=== PATIENT | female | born 1965 | race Caucasian/White ===

== ENCOUNTER → 2017-11-17 14:56 | Outpatient (CLI) | payer OTHER, SELFPAY ==
--- NOTE | 2017-11-17 | DI.MRI.S_ITS ---
PROCEDURE: MR LUMBAR SPINE WO CON INDICATIONS: RIGHT LEG WEAKNESS, LOW BACK PAIN TECHNIQUE: Noncontrast sagittal T1 spin echo and T2 fast echo, sagittal STIR, axial T1 and T2 fast spin echo through the lumbar spine. In cases with scoliosis, additional coronal T2 fast spin echo may be performed. COMPARISON: [facility], CR, XR LUMBAR SPINE 2 OR 3 VIEWS, 10/25/2017, 9:21. FINDINGS: Image quality: Excellent. Alignment and Curvature: There is normal bony alignment. Bone Marrow: Marrow is of normal overall signal. No acute vertebral body compression fractures. Spinal Cord: Conus medullaris terminates at the L1-L2 level. Visualized cord demonstrates normal signal and size. Paraspinous Soft Tissues: No paravertebral masses. L1-L2: Normal appearance. L2-L3: Posterior annular fissure. Minimal broad-based posterior disc bulge bilateral facet disease. No high-grade canal stenosis. No foraminal narrowing. L3-L4: Minimal broad-based posterior disc bulge and bilateral facet disease. No central canal stenosis. Mild symmetric subarticular narrowing. No definite foraminal stenosis. L4-L5: Posterior annular fissure and broad-based posterior disc bulge with superimposed central disc protrusion. Bilateral facet arthropathy. Mild to moderate central canal narrowing. Symmetric bilateral subarticular narrowing is also present. Mild bilateral foraminal stenoses L5-S1: Posterior annular fissure. Broad-based posterior disc bulge bilateral facet arthropathy. Mild central canal narrowing. There is asymmetric subarticular narrowing, right greater than left. This may impinge the descending right S1 nerve root. Mild left foraminal stenosis. No definite right foraminal narrowing IMPRESSION: Asymmetric right-sided L5-S1 subarticular narrowing raising the possibility of impingement of the descending right S1 nerve root. Please correlate with exam findings. Elsewhere, mild-moderate L4-L5 central canal narrowing. Mild bilateral L4-L5 foraminal stenoses. Dictated by: Bernard Hawley M.D. on 11/17/2017 at 16:04 Approved by: Bernard Hawley M.D. on 11/17/2017 at 16:15
== END ==
PROVIDERS: Visit Provider Naturopath
DX: M54.5 Low back pain (principal); M62.81 Muscle weakness (generalized); M48.061 Spinal stenosis, lumbar region without neurogenic claudication
CPT/HCPCS: 72148

== ENCOUNTER 2018-04-10 12:27 | Outpatient (CLI) | payer OTHER, MEDICAID, SELFPAY ==
[2018-04-10] VITALS (8 sets, daily range): BP systolic 104–143; BP diastolic 19–82; PULSE 66–75; RESP 16–18; TEMP 36.6; O2SAT 95–100
--- NOTE | 2018-04-10 12:31 | DI.RAD.S_ITS ---
PROCEDURE: PAIN L/S TRANSFORAMINAL INJECT INDICATIONS: INTERVERTEBRAL DISC DISPLACEMENT FINDINGS: Fluoroscopic spot filming was performed to verify placement of spinal needles at the L4-L5 level(s), as labeled on the films. Appropriate location(s) of the needle tip(s) was confirmed by injection of iodinated contrast. IMPRESSION: Fluoroscopy for pain management. Dictated by: Kelli Morales M.D. on 04/11/2018 at 7:45 Approved by: Kelli Morales M.D. on 04/11/2018 at 7:45
[2018-04-10] MEDS: MIDAZOLAM 5 MG/5 ML VIAL IV (13:29)
[2018-04-10] MEDS: fentaNYL 100 MCG/2 ML INJ IV (13:35)
[2018-04-10] MEDS: BUPIVACAINE 0.25% (PF) VIAL 2 ML INJ (13:37)
[2018-04-10] MEDS: DEXAMETHASONE 10 MG/ML VIAL 20 MG INJ (13:37)
[2018-04-10] MEDS: IOPAMIDOL 15 ML VIAL 3 ML INJ (13:37)
--- NOTE | 2018-04-10 13:39 | PC.NURSE ---
ASSISTING PT OFF TABLE AND TRANSPORTING TO POST PROC AREA IN STABLE CONDITION
--- NOTE | 2018-04-10 13:42 | PM.PROC.1 ---
Procedures Date/Time Date of procedure: 04/10/18 Time of procedure: 13:42 General Procedure description: PREOP DIAGNOSIS 1. FORMAINAL STENOSIS WITH LE SYMPTOMS POST OP DIAGNOSIS 1. FORMAINAL STENOSIS WITH LE SYMPTOMS PROCEDURES 1. FLUOROSCOPICALLY GUIDED CONTRAST CONTROLLED TRANSFORAMINAL EPIDURAL STEROID INJECTION - RIGHT L4/5 TFESI PHYSICIAN: Bridger Garcai DO INDICATIONS: Curtis is referred by Dr. Elise for treatment of HNP with Right LE Symptoms FINDINGS Foraminal Nerve Root Compression secondary to disc disease and facet hypertrophy DESCRIPTION OF PROCEDURE: Following denial of allergy and review of potential side effects and complications, including, but not necessarily limited to, infection, allergic reaction, local tissue breakdown, stroke, temporary or permanent nerve injury, paralysis, and possible , the patient indicated that the patient understood and agreed to proceed. An informed consent document was signed by the patient, witnessed by a nurse, and placed in the patient's chart. Additionally, other treatment options including medications, modalities, and physical therapy were reviewed with the patient. After review of previous anaesthesic history and IV conscious sedation the patient was deemed safe to proceed with todays procedure with IV conscious sedation as ASA class II designation. Safety time-out was performed to confirm patient ID, procedure to be performed and site of procedure. IV sedation was accomplished with a combination of 3mg of Versed and 50mcg of Fentantyl was administered by the RN after DO order, titrated to patient comfort during the course of the procedure while the patient remained responsive to all verbal commands In the prone position following sterile prep and drape of the lumbar region, the Right L4/5 posterior neuroforamen was identified fluoroscopically. The skin was anesthetized via a 25-gauge 1.5-inch needle with 1% lidocaine solution. At this point, a 25-gauge 3.5-inch spinal needle was atraumatically introduced and advanced under fluoroscopic guidance through the posterior Right L4/5 neuroforamen to approximately the anterior aspect of the canal. Depth was confirmed on lateral view. Following negative aspiration, injection of approximately 1.5 cc of Isovue 200 under live fluoroscopy in the AP view confirmed excellent flow along the nerve root, into the epidural space without vascular or intrathecal uptake observed Radiological data, including multiple fluoroscopic views of the lumbosacral spine, reveal a spinal needle at the right L4/5 posterior neuroforamen. Subsequent views show flow of contrast material flowing superiorly and inferiorly along the nerve root confirming epidural flow. Subsequently, a test dose of 1.5 cc of 1% lidocaine solution was administered and patient was observed for two minutes for signs or symptoms of complications, including abdominal pain, shortness of breath, bilateral upper or lower extremity weakness, nausea and vomiting, prior to steroid injection. At this point, a total of 2cc or 20mg of dexamethasone was injected without incident. The procedure tolerated the procedure well without signs or symptoms of complications prior to transfer to the recovery area continued monitoring without incident.The patient was then transferred to the recovery area where they were observed for an appropriate time after the injection. The patient reported a VAS score of 7 prior to the procedure and a post-procedure VAS of 0. Total Fluoroscopy Time: 20.9 seconds Total Conscious Sedation Time: 24min POST OP INSTRUCTIONS The patient was provided a Pain Log to continue to record their response to the target-specific procedure prior to follow-up visit with their referring physician. Additionally, specific post-injection care instructions and a contact number to our office were provided if concerns arise regarding possible complications associated with the procedure are suspected. Bridger Garcia DO Complications: none
--- NOTE | 2018-04-10 13:54 | PC.NURSE ---
Pt returned from procedure via wheelchair awake and alert. Able to transfer self from w/c to chair with standby assist. Resumed monitoring from Sharon MCKEON.
--- NOTE | 2018-04-11 12:25 | PC.NURSE ---
FOLLOW UP CALL MADE, LEFT MSG WITH CLINIC NUMBER IN CASE OF QUESTIONS/CONCERNS.
== END 2018-04-10 14:25 ==
LOC: RAD 12:30
PROVIDERS: PCP Naturopath; Visit Provider Physical Medicine & Rehabilitation
DX: M48.061 Spinal stenosis, lumbar region without neurogenic claudication (principal); M51.16 Intervertebral disc disorders with radiculopathy, lumbar region
CPT/HCPCS: 64483; 99152; J1100; J2250; J3010

== ENCOUNTER → 2020-08-27 13:15 | Outpatient (CLI) | payer OTHER, MEDICAID, SELFPAY ==
[2020-08-27 14:41] LABS: COVID19 -Nasal RAPID Negative (Negative)
== END ==
PROVIDERS: PCP Naturopath; Visit Provider Specialist
DX: Z01.812 Encounter for preprocedural laboratory examination (principal); Z20.822 Contact with and (suspected) exposure to COVID-19
CPT/HCPCS: 87635

== ENCOUNTER 2020-08-28 06:21 | Day surgery (SDC) | payer OTHER, MEDICAID, SELFPAY ==
[2020-08-24 09:38] VITALS: BMI 22.6
[2020-08-28] VITALS (10 sets, daily range): BP systolic 94–130; BP diastolic 43–72; PULSE 52–69; RESP 13–18; TEMP 36.3–37.2; O2SAT 97–100; BMI 22.6
--- NOTE | 2020-08-28 | PATH_ITS ---
[facility] Accession Number: [id number] . 01 Material submitted: . endometrium - ENDOMETRIAL CURETTINGS . 01 Clinical history: . SDC . 02 Diagnosis: Endometrial Curettings: Disordered proliferative endometrium; negative for cytologic atypia or malignancy. Most endometrium is attached to portions of myometrium; negative for atypia or malignancy. Some tissue fragments demonstrate prominent vessels, suggestive of polyp, if clinical and imaging studies are concordant. MRV 09/02/2020 1041 Local . 02 Electronically signed: . Jessica Ribeiro MD, Pathologist NPI- [id number] . 01 Gross description: . ENDOMETRIAL CURETTINGS: Received in formalin are minute fragments of mucoid and hemorrhagic material measuring 2.2 x 2.0 x 0.4 cm in aggregate. Submitted in toto in 1 cassette. /DANIA 08/29/2020 0249 Local . 02 Pathologist provided ICD-10: N92.0 . 02 CPT . 231937 Performed at: 01 [facility] [address], [place], [place] [id number] MD Chicho Harper MD Phone: [phone] Performed at: 02 [facility] [address] [place], [place] [id number] MD Abby Jain MD Phone: [phone]
--- NOTE | 2020-08-28 07:28 | PM.PREOP ---
Pre-operative Note COVID-19 COVID-19 status: Negative Result date/Date tested (Pos, Neg/Pending): 08/27/20 Interval Note History & Physical reviewed/Exam performed by Physician: Yes Changes to H&P: No
[2020-08-28] MEDS: LACTATED RINGERS 1,000 ML 100 ML IV (07:29)
--- NOTE | 2020-08-28 08:02 | SUR.OPER ---
Lithotomy on padded OR bed, head on pillow, arms secured on padded arm boards at <90 degrees abduction. Legs secured in padded yellow fins stirrups.
--- NOTE | 2020-08-28 08:24 | PM.OP.1 ---
Operative Date/Time/Diagnoses Date of procedure: 08/28/20 Time of procedure: 08:24 Pre-op diagnosis: Postmenopausal bleeding Post-op diagnosis: same Procedure & Clinicians Procedure: Hysteroscopy with resection of polyp and D&C Same procedure as scheduled: Yes Indications: Postmenopausal bleeding Surgeon: Vanessa Juarez Click Yes if Unassisted: Yes Anesthesia Type: General Operative Notes Findings: Endometrial polyp with some areas of increased vascularity otherwise thin endometrium. The uterine cavity was somewhat distorted from her uterine fibroid. There did not appear to be any advantage to the resecting the fibroid. Closure Type: not applicable Specimen(s): other (Resected polyp with endometrial curettage ) Estimated Blood Loss (mL): 5 Procedure in detail: The patient was brought to the operating room where she underwent general anesthesia. She was placed in low stirrups She was prepped and draped in usual sterile fashion with pulsatile stockings in place and functional, warming in place. No antibiotics were in Her bladder was drained with in and out catheter. A single-tooth tenaculum was placed on the anterior lip of the cervix and the uterus dilated to #8 Hegar dilator. The hysteroscope was placed into the uterus with a sorbitol solution running and under constant suction. The resecting loop set at 80 W of cutting was used to resect the polyp and areas of increased vascularity down to the level of the endometrium. A endometrial curettage was performed. The resected polyp, increased vascular areas and the endometrial curettage was sent to pathology. The patient went to recovery room in good condition counts of instruments and sponges were correct. Estimated blood loss less than 5 mL. The sorbitol solution I=O approximately 1000 mL. Complications: none Post-operative Condition: stable Disposition: same day surgery Plan for aftercare: Home when awake and stable. Treatment and follow-up based on biopsy results.
[2020-08-28] MEDS: fentaNYL 100 MCG/2 ML INJ IV ×4 (08:35→09:02)
[2020-08-28] MEDS: OXYCODONE IR 5 MG TABLET PO ×2 (08:36→09:03)
[2020-08-28] MEDS: HYDROMORPHONE 2 MG INJ 0.5 MG IV (09:34)
--- NOTE | 2020-08-28 14:37 | SUR.PHASEII ---
Late entry: Pt up to BR to void, steady when up, belly soft, minimal discharge on brigido pad, belly soft, left when ready and left in stable condition.
== END 2020-08-28 10:20 | disposition home or self-care (01) ==
PROVIDERS: PCP Naturopath; Referring Provider Specialist; Visit Provider Specialist
PROC: 0UDB8ZZ Extraction of Endometrium, Via Natural or Artificial Opening Endoscopic (ICD-10-PCS; CPT 58558; principal; 2020-08-28 07:45)
DX: N95.0 Postmenopausal bleeding (principal); D25.9 Leiomyoma of uterus, unspecified
CPT/HCPCS: 58558; J1100; J1170; J1885; J2250; J2704; J3010

== ENCOUNTER → 2023-11-29 09:29 | Outpatient (CLI) | payer OTHER, MEDICAID, SELFPAY ==
--- NOTE | 2023-11-29 09:30 | DI.MRI.S_ITS ---
PROCEDURE: MR HIP RT WO CON INDICATIONS: DISORDER OF TENDON,RT HIP / RT BUTTOCK PAIN TECHNIQUE: Noncontrast coronal T1 spin echo and STIR through the bony pelvis. Coronal and axial T2 fast spin echo with fat saturation, sagittal T1 spin echo, and oblique axial T2 fast spin echo with fat saturation through the hip. COMPARISON: [facility], CR, XR HIP 2 VIEWS RIGHT, 09/26/2023, 15:47. FINDINGS: Image quality: Excellent. Bones and joints: There is mild fibrovascular end plate change at the left aspect of L5-S1. The sacrum is intact. The right sacroiliac joint is unremarkable. There is patchy marrow edema in the subchondral left sacral alae, about the superior left sacroiliac joint, nonspecific and may be degenerative. No acute fracture or dislocation of either hip. No significant degenerative changes either hip. Tendons and ligaments: The right iliopsoas, and adductor tendon are unremarkable. The right hamstring tendon is unremarkable. Low-grade tear of the right gluteal minimus. the right gluteal medius tendon is unremarkable. Trace right greater trochanteric bursitis. Mild tenosynovitis of the proximal vastus lateralis at the greater trochanter insertion. Labrum and cartilage: Circumferential labral tear. No paralabral cyst. Soft tissues: There is a 2.0 cm cystic lesion posterior to the left greater trochanter, favoring to represent a ganglion cyst, incompletely evaluated. Mild left greater trochanter bursitis. No full-thickness tear of the left gluteal minimus or medius. IMPRESSION: 1. Patchy marrow edema in the left subchondral sacral alae, about the left sacroiliac joint, nonspecific and may be degenerative. 2. Low-grade tear of the right gluteal minimus. Mild tenosynovitis of the proximal vastus lateralis. Mild right greater trochanteric bursitis. 3. Circumferential labral tear of the right hip. 4. 2.0 cm likely ganglion cyst about the left greater trochanter, incompletely evaluated. Mild left greater trochanteric bursitis. Dictated by: Suzanna Knowles M.D. on 11/29/2023 at 14:30 Approved by: Suzanna Knowles M.D. on 11/29/2023 at 14:43
== END ==
LOC: MRI 09:30
PROVIDERS: PCP Naturopath; Referring Provider Family Medicine Sports Medicine; Visit Provider Family Medicine Sports Medicine
DX: S76.011A Strain of muscle, fascia and tendon of right hip, initial encounter (principal); S73.191A Other sprain of right hip, initial encounter; M67.853 Other specified disorders of tendon, right hip; M79.18 Myalgia, other site; M65.98 Unspecified synovitis and tenosynovitis, other site; M71.552 Other bursitis, not elsewhere classified, left hip; M71.551 Other bursitis, not elsewhere classified, right hip; X58.XXXA Exposure to other specified factors, initial encounter
CPT/HCPCS: 73721